=== PATIENT | male | born 1980 | race Caucasian/White ===

== ENCOUNTER 2018-05-13 14:47 | Day surgery (SDC) | payer BC ==
[~2018-05-13] VITALS: Ht 190.5 cm; Wt 108.4 kg
[2018-05-13] MEDS ORDERED: LACTATED RINGERS 1,000 ML IV SCH (15:28)
[2018-05-13 15:31] VITALS: BP 131/93
[2018-05-13] MEDS ORDERED: PLEASE ENTER HEIGHT AND WEIGHT MC SCH (15:31)
[2018-05-13] MEDS ORDERED: lisinopril PO (15:31)
[2018-05-13] MEDS ORDERED: amlodipine PO (15:31)
[2018-05-13 16:22] LABS: MICROSCOPIC INDICATED
[2018-05-13 16:26] LABS: ALBUMIN 4.1 g/dL (3.4-5.0); ANION GAP 8 mmol/L (5-15); CALCIUM 9.1 mg/dL (8.5-10.1); CHLORIDE 103 mmol/L (98-107)
[2018-05-13 16:29] LABS: ALANINE AMINOTRANSFERASE 55 U/L (12-78); ALKALINE PHOSPHATASE 63 U/L (45-117); BILIRUBIN,TOTAL 0.7 mg/dL (0.2-1.0); CREATININE 0.86 mg/dL (0.7-1.3); TOTAL PROTEIN 7.5 g/dL (6.4-8.2)
[2018-05-13] MEDS ORDERED: MIDAZOLAM 1 MG/ML, 2ML ONE (16:35)
[2018-05-13] MEDS ORDERED: FENTANYL PF 250 MCG/5ML ONE ×2 (16:35→18:05)
[2018-05-13] MEDS ORDERED: PROPOFOL 10 MG/ML, 20ML ONE (16:59)
[2018-05-13] MEDS ORDERED: HYDROmorphone 2 MG/ML, 1ML IVPush PRN (17:00)
[2018-05-13] MEDS ORDERED: MEPERIDINE/PF 25MG/0.5ML IVPush PRN (17:00)
[2018-05-13] MEDS ORDERED: PROMETHAZINE 25 MG/ML, 1ML IV PRN (17:00)
[2018-05-13] MEDS ORDERED: ONDANSETRON 2MG/ML, 2ML IV PRN (17:00)
[2018-05-13] MEDS ORDERED: OXYcodone 5 MG/5 ML ORAL.SOL UDC PO PRN (17:00)
[2018-05-13] MEDS ORDERED: hydrALAzine 20 MG/ML, 1ML IV PRN (17:00)
[2018-05-13] MEDS ORDERED: DEXAMETHASONE 4 MG/ML, 1ML ONE ×2 (17:00)
[2018-05-13] MEDS ORDERED: FENTANYL PF 100 MCG/2ML IV PRN (17:00)
[2018-05-13] MEDS ORDERED: ROCURONIUM 10MG/ML,5ML ONE (17:00)
[2018-05-13] MEDS ORDERED: LABETALOL 5MG/ML, 20ML IV PRN (17:00)
[2018-05-13] MEDS ORDERED: CEFAZOLIN 1,000 MG ONE (17:11)
[2018-05-13] MEDS ORDERED: KETOROLAC 30 MG/1 ML ONE (18:24)
[2018-05-13] MEDS ORDERED: ONDANSETRON 2MG/ML, 2ML ONE ×2 (18:24→18:26)
[2018-05-13] MEDS ORDERED: OXYcodone 5 MG/5 ML ORAL.SOL UDC ONE (18:49)
[2018-05-13] MEDS ORDERED: OMNIPAQUE 350 MG/ML, 50 ML BOTTLE ONE (18:51)
[2018-05-13] MEDS ORDERED: MORPHINE SULFATE 4 MG/ML, 1ML IVPush PRN (19:30)
[2018-05-13] MEDS ORDERED: D5%-0.45% NACL 1,000 ML IV SCH (19:30)
[2018-05-13] MEDS ORDERED: ONDANSETRON 2MG/ML, 2ML IVPush PRN (19:30)
== END 2018-05-13 20:50 | disposition home or self-care (01) ==
LOC: OR 14:47 → EDSEX 14:47 → 4NOR 19:10 → OR 20:50
PROVIDERS: ATTEND Urology
DX: N20.0 Calculus of kidney (principal); I10 Essential (primary) hypertension
CPT/HCPCS: 36415; 52356; 74018; 76001; 80053; 81001; 82360; 88300; C1758; C1769; C2617; J0690; J1100; J1885; J2250; J2405; J2704; J3010; Q9967; G0378